=== PATIENT | female | born 1955 | race Caucasian/White ===

== ENCOUNTER 2017-01-20 12:40 | Emergency (ER) | payer BC, OTHER ==
[2017-01-20 12:45] VITALS: BP 149/81
[2017-01-20] MEDS ORDERED: CITA10TA4 PO (13:24)
[2017-01-20] MEDS ORDERED: VITA150T PO (13:24)
[2017-01-20] MEDS ORDERED: GLUC100019 PO (13:24)
[2017-01-20] MEDS ORDERED: GARL10002 PO (13:24)
[2017-01-20] MEDS ORDERED: PRAV20TA2 PO (13:24)
[2017-01-20] MEDS ORDERED: CHOL10003 PO (13:24)
[2017-01-20] MEDS ORDERED: LISI-167 PO (13:24)
[2017-01-20 13:45] LABS: ASPARTATE AMINO TRANSFERASE 29 U/L (15-37); BLOOD UREA NITROGEN 16 mg/dL (7-18)
== END 2017-01-20 14:19 | disposition home or self-care (01) ==
LOC: ED 14:00
DX: S80.12XA Contusion of left lower leg, initial encounter (principal); X58.XXXA Exposure to other specified factors, initial encounter; Y93.89 Activity, other specified; Y99.8 Other external cause status; Y92.89 Other specified places as the place of occurrence of the external cause
CPT/HCPCS: 36415; 80053; 85025; 85610; 85730